=== PATIENT | female | born 1985 | race Caucasian/White ===

== ENCOUNTER → 2017-01-23 | Outpatient (CLI) | payer OTHER ==
[~2017-01-23] MED LIST: PRENTAB26 PO
[2017-01-23 11:28] LABS: HEMATOCRIT 38.5 % (37-47)
[2017-01-23 12:12] LABS: GTGD 50 Grams
[2017-01-23 12:49] LABS: URINE APPEARANCE CLEAR (CLEAR); URINE BILIRUBIN NEG (NEG); URINE COLOR YELLOW; URINE EPITHELIAL CELL AUTO >30 /lpf (0-5); URINE NITRITE NEG (NEG); URINE SPECIFIC GRAVITY 1.019 (1.000-1.030); UROBILINOGEN NEG (NEG)
[2017-01-23 12:56] LABS: MANUAL MICROSCOPIC REQUIRED? NO; REVIEW REQ? NO
== END | disposition home or self-care (01) ==
LOC: C.LAB1850 09:33
PROVIDERS: ATTEND Obstetrics & Gynecology
DX: Z34.93 Encounter for supervision of normal pregnancy, unspecified, third trimester (principal)

== ENCOUNTER → 2017-02-06 | Outpatient (CLI) | payer OTHER | END | disposition home or self-care (01) | LOC: C.LAB1850 08:30 | PROVIDERS: ATTEND Obstetrics & Gynecology | DX: Z34.92 Encounter for supervision of normal pregnancy, unspecified, second trimester (principal) ==

== ENCOUNTER → 2017-03-20 | Outpatient (CLI) | payer OTHER | END | disposition home or self-care (01) | LOC: C.LABSPEC 17:25 | PROVIDERS: ATTEND Obstetrics & Gynecology | DX: Z34.93 Encounter for supervision of normal pregnancy, unspecified, third trimester (principal) ==

== ENCOUNTER 2017-04-09 19:29 | Outpatient (CLI) | payer OTHER ==
[~2017-04-09] VITALS: Ht 172.7 cm; Wt 96.4 kg
[2017-04-09 20:55] LABS: MEAN CELL VOLUME 91.8 fL (80-100); MEAN CORPUSCULAR HEMOGLOBIN 31.4 pg (25-34); MEAN CORPUSCULAR HGB CONC 34.2 g/dl (32-36); MEAN PLATELET VOLUME 9.7 fL (7.4-10.4); PLATELET COUNT 259 K/uL (130-400); RED BLOOD COUNT 4.14 M/uL (4.2-5.4)
[2017-04-09 21:20] VITALS: Ht 172.7 cm; Wt 96.4 kg
[2017-04-09] MEDS ORDERED: PRENTAB26 PO (21:20)
[2017-04-09 21:25] LABS: ALKALINE PHOSPHATASE 170 U/L (45-117); ALT/SGPT 17 U/L (12-78); AST/SGOT 10 U/L (15-37)
== END 2017-04-09 22:45 | disposition home or self-care (01) ==
LOC: C.OPB 19:29 → C.LD 19:29 → C.OPB 22:45
PROVIDERS: ATTEND Obstetrics & Gynecology
DX: O16.3 Unspecified maternal hypertension, third trimester (principal); Z3A.39 39 weeks gestation of pregnancy

== ENCOUNTER 2017-04-10 07:27 | Inpatient (IN) | payer OTHER ==
[~2017-04-10] VITALS: Ht 172.7 cm; Wt 96.5 kg
[2017-04-10] MEDS ORDERED: LACTATED RINGER'S 1000ML 1,000 ML IV PRN (08:34)
[2017-04-10] MEDS ORDERED: LACTATED RINGER'S 1000ML 500 ML IV PRN ×2 (08:35→11:40)
[2017-04-10] MEDS ORDERED: OXYTOCIN 30 UNITS/500ML NSS IV PRN (08:45)
[2017-04-10 09:01] VITALS: Ht 172.7 cm; Wt 96.5 kg
[2017-04-10 09:09] LABS: MEAN CELL VOLUME 91.7 fL (80-100); MEAN CORPUSCULAR HEMOGLOBIN 30.7 pg (25-34); MEAN CORPUSCULAR HGB CONC 33.5 g/dl (32-36); MEAN PLATELET VOLUME 10.2 fL (7.4-10.4); PLATELET COUNT 266 K/uL (130-400); RED BLOOD COUNT 4.36 M/uL (4.2-5.4)
[2017-04-10] MEDS: LACTATED RINGER'S 1000ML 1,000 ML IV SCH ×3 (09:16→16:32)
[2017-04-10 09:18] LABS: INR 0.9 (0.9-1.1); PROTHROMBIN TIME (PATIENT) 9.4 SECONDS (9.0-12.0)
[2017-04-10] MEDS ORDERED: BUPIVACAINE 0.25% 30 ML VIAL ONE (10:44)
[2017-04-10] MEDS ORDERED: FENTANYL CITRATE INJ 50 MCG/1 ML 2 ML VIAL ONE (10:45)
[2017-04-10] MEDS ORDERED: EpHEDrine SULFATE INJ 50 MG/ML AMP ONE (10:45)
[2017-04-10] MEDS ORDERED: FENTANYL 2MCG/ML ROPIV 1.25MG/ML 100ML BAG EPI ONE (10:46)
[2017-04-10] MEDS ORDERED: DiphenhydrAMINE HCL 50 MG/ML VIAL IV PRN (11:45)
[2017-04-10] MEDS ORDERED: ONDANSETRON INJ 2 MG/ML 2 ML VIAL IV PRN (11:45)
[2017-04-10] MEDS ORDERED: NALBUPHINE HCL INJ 10 MG/ML AMP IV PRN (11:45)
[2017-04-10] MEDS ORDERED: NALOXONE HCL INJ 0.4 MG/1 ML VIAL/CARP IV PRN (11:45)
[2017-04-10] MEDS ORDERED: EpHEDrine SULFATE INJ 50 MG/ML AMP IV PRN (11:45)
--- NOTE | 2017-04-10 17:13 | Medical Student: [facility] ---
Med Student History & Physical Date of Service April 10, 2017. Chief Complaint Induction for gestational htn History of Present Illness Source: patient Pt is a 32F with , STELLA of 04/13, 39-4 weeks of GA, presents for induction. course has been complicated by gestational htn Induced via pictocin. Intially no loss of fluid or uterine bleeding, +FM At 9AM Dr. Jorge performed AROM, fluid clear. Epidural begun. 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 History Menarche: 15 LMP: 07/07 hx of abnormal pap smear --> LEEP (2008) Past Medical History hx of depression, migraines Past Surgical History wisdom teeth Social History Smoking Status: Current Every Day Smoker (5 per day) Alcohol Use: none Drug Use: none Marital Status: Housing status: lives with family Allergies Coded Allergies: No Known Allergies (Unverified , 04/10/17) Home Medications Multivit/Min/Iron/Fol Ac/Pren ( Vitamin), 1 TAB PO DAILY Review of Systems Constitutional: No chills, No fever, No sweats Eyes: No eye pain, No worsening of vision Respiratory: No cough, No shortness of breath, No wheezing Cardiovascular: No chest pain, No palpitations Abdomen: No nausea, No pain, No vomiting Musculoskeletal: No calf pain Genitourinary - Female: No dysuria Physical Exam Vital Signs: BP: 116/74 HR: 70 General Appearance: WD/WN, no apparent distress Head: normocephalic, atraumatic Respiratory/Chest: chest non-tender, lungs clear, normal breath sounds Cardiovascular: regular rate, rhythm, no gallop, no murmur Abdomen / GI: non tender, soft Extremities: no calf tenderness, + pedal edema (+1) Skin: normal color, warm/dry Monitoring External Monitor: FHR: 140, variability moderate, accels present, early decels present, category 1. Tocodynamometer: Contractions every 2-4 min Laboratory Results 04/10/17 08:57 Test 04/10/17 08:57 Red Blood Count 4.36 M/uL (4.2-5.4) Mean Corpuscular Volume 91.7 fL (80-100) Mean Corpuscular Hemoglobin 30.7 pg (25-34) Mean Corpuscular Hemoglobin Concent 33.5 g/dl (32-36) RDW Standard Deviation 48.2 fL (36.4-46.3) RDW Coefficient of Variation 14.3 % (11.5-14.5) Mean Platelet Volume 10.2 fL (7.4-10.4) Prothrombin Time 9.4 SECONDS (9.0-12.0) Prothromb Time International Ratio 0.9 (0.9-1.1) Activated Partial Thromboplast Time 25.0 SECONDS (21.0-31.0) Partial Thromboplastin Ratio 1.0 Assessment and Plan Pt is a 32F, at 39-4 weeks gestation complicated by preeclampsia. Want to continue with induction and increase pictocin dose as needed.
[2017-04-10] MEDS ORDERED: ACETAMINOPHEN 325 MG TAB PO PRN (17:45)
[2017-04-10] MEDS: FENTANYL 2MCG/ML ROPIV 1.25MG/ML 100ML BAG EPI PRN ×2 (19:03→19:55)
[2017-04-11] MEDS: FENTANYL 2MCG/ML ROPIV 1.25MG/ML 100ML BAG EPI PRN (01:20)
[2017-04-11] MEDS ORDERED: MISOPROSTOL 200 MCG TAB ONE (03:17)
[2017-04-11] MEDS ORDERED: SUPERCREAM 0.870 % 15GM JAR EXT PRN (03:45)
[2017-04-11] MEDS ORDERED: ACETAMINOPHEN 325 MG TAB PO PRN (03:45)
[2017-04-11] MEDS ORDERED: BENZOCAINE 20% AER SPR 82.5 GM CAN EXT PRN (03:45)
[2017-04-11] MEDS ORDERED: OXYTOCIN 30 UNITS/500ML NSS IV PRN (03:45)
[2017-04-11] MEDS ORDERED: HYDROCORTISONE ACETATE 25 MG SUPP PR PRN (03:45)
[2017-04-11] MEDS ORDERED: ACETAMINOPHEN/CODEINE 300/30MG TAB PO PRN ×2 (03:45)
[2017-04-11] MEDS ORDERED: LANOLIN OINT EXT PRN ×2 (03:45)
[2017-04-11] MEDS ORDERED: DIPHTHERIA/TETANUS/PERTUSSIS 0.5 ML SYR/VIAL IM. ONE (03:45)
--- NOTE | 2017-04-11 07:39 | Anesthesia Procedure Note ---
Anesthesia Epidural Removal Nt Date & Time April 11, 2017 at 07:40 Vital Signs Pain Intensity: 0.0 Notes Mental Status: alert / awake / arousable, participated in evaluation Nausea / Vomiting: adequately controlled Pain: adequately controlled Airway Patency, RR, SpO2: stable & adequate BP & HR: stable & adequate Hydration State: stable & adequate Neuraxial Anesthesia: was administered Anesthetic Complications: no major complications apparent, pt satisfied with anesthetic care Epidural: removed without complications, with tip intact
[2017-04-11] MEDS: IBUPROFEN 600 MG TAB PO PRN ×3 (07:46→20:00)
[2017-04-11] MEDS: FERROUS SULFATE 325 MG TAB PO SCH (07:46)
[2017-04-11] MEDS: DOCUSATE SODIUM 100 MG CAP PO SCH ×2 (07:46→20:00)
[2017-04-11] MEDS: PRENATAL VITAMIN TAB PO SCH (07:46)
--- NOTE | 2017-04-11 10:57 | DELIVERY SUMMARY ---
DATE OF OPERATION: 04/11/2017 FINDINGS: Viable female with Apgars of 8 and 9. Baby delivered spontaneously over midline episiotomy. Cord gases, cord blood samples obtained. Cord blood donation kit obtained. Placenta delivered spontaneously. Episiotomy repair was performed with 2-0 Vicryl in a routine fashion. Estimated blood loss 300 mL. LABOR NOTE: The patient is a 32-year-old 2, para 0 with an EDC of 13 April at 39+ weeks of gestational age, she was admitted for term induction and for gestational hypertension. The patient had elevated blood pressure since 37 weeks with a diagnosis of gestational hypertension at term, the patient is admitted for induction. The patient's blood type is A positive, antibody negative, rubella immune, hepatitis B negative. She had normal panorama. She had negative maternal serum AFP. She had an elevated 1-hour Glucola at 28 weeks with normal 2-hour glucose tolerance test and she had negative 3rd trimester beta strep culture. Upon admission, the patient's blood pressure was 140/90. Abdomen was gravid, vertex, positive heart tones, estimated weight of 8 pounds. Cervix was 3 cm dilated, 50% efface, and -2 station. The tracing was category 2. PIH labs were stable and the patient was started on Pitocin per induction protocol. Approximately 2 hours after starting Pitocin, the patient had artificial rupture of membranes for clear fluid. Contractions increased in intensity up to the rupture of membranes. Epidural was placed. An intrauterine pressure catheter was placed to better monitor the contractions. The patient remained in a latent phase of labor for approximately 6 hours. Contractions were adequate with the Pitocin. Approximately 8 hours after rupture of membranes, she was 5 cm dilated, 100% effaced and 0 station. Over the next 6 hours, the patient progressed to full dilatation. Tracing remained category 2, then she began her second stage. She pushed for approximately an hour delivering the viable female infant. The cord was clamped and cut. Cord gases, cord blood samples were obtained. Cord blood donation kit was collected. Placenta was delivered spontaneously. Midline episiotomy was repaired with 4-0 and 2-0 Vicryl in routine fashion. Her estimated blood loss was 300 mL. I attest to the content of the Intraoperative Record and any orders documented therein. Any exceptio ns are noted below.
[2017-04-11 11:20] VITALS: BP 126/84; PULSE 92; TEMP 36.7
[2017-04-11 11:26] VITALS: BP 133/80; PULSE 92; TEMP 36.5; O2SAT 98
[2017-04-11 15:57] VITALS: BP_SYST 124; BP_SYST 152; BP_DIAS 90; BP_DIAS 91; PULSE 110; TEMP 36.6
[2017-04-11 20:00] VITALS: BP 149/93; PULSE 117; TEMP 36.8
[2017-04-12 00:25] VITALS: BP 128/85; PULSE 89; TEMP 36.5
[2017-04-12] MEDS: IBUPROFEN 600 MG TAB PO PRN ×3 (00:32→16:32)
[2017-04-12 07:10] VITALS: BP 124/79; PULSE 85; TEMP 36.6; O2SAT 98
[2017-04-12 07:28] LABS: HEMATOCRIT 30.7 % (37-47)
[2017-04-12] MEDS: FERROUS SULFATE 325 MG TAB PO SCH (08:00)
[2017-04-12] MEDS: DOCUSATE SODIUM 100 MG CAP PO SCH (08:00)
[2017-04-12] MEDS: PRENATAL VITAMIN TAB PO SCH (08:00)
--- NOTE | 2017-04-12 08:37 | Progress Note ---
Subjective April 12, 2017. Subjective conversation w/ patient, physical exam Ambulation: ambulating normally Voiding: no voiding problems Passing Gas: Yes Diet Tolerance: Regular Diet [place]ochia: Moderate Feeding Type: Breast Feeding Review of Systems Constitutional: No problem reported Respiratory: No problem reported Cardiac: No problem reported Breast: No problem reported Abdomen: No problem reported Female : No problem reported Objective Vital Signs Date Time Temp Pulse Resp B/P Pulse Ox O2 Delivery O2 Flow Rate FiO2 04/12/17 07:10 36.6 85 18 124/79 98 Room Air 04/12/17 00:25 36.5 89 18 128/85 Room Air 04/12/17 00:25 Room Air 04/11/17 20:00 36.8 117 20 149/93 04/11/17 17:00 Room Air 04/11/17 15:57 36.6 110 18 124/90 Room Air 152/91 04/11/17 11:26 36.5 92 18 133/80 98 Room Air 04/11/17 11:20 Room Air 04/11/17 11:20 36.7 92 20 126/84 Room Air Physical Exam General Appearance: WELL-APPEARING, NO APPARENT DISTRESS Respiratory/Chest: no respiratory distress Cardiovascular: regular rate, rhythm Abdomen: normal bowel sounds Fundus: Firm Extremities: normal inspection Laboratory Results Last 24 Hours Test 04/12/17 06:24 Hemoglobin 10.2 g/dL Hematocrit 30.7 % Assessment and Plan Post- Day#: 1 Continue Routine Care: PPD#1 doing well. Continue routine care.
--- NOTE | 2017-04-12 08:57 | Discharge Instructions ---
Discharge Instructions Date of Service April 12, 2017. Admission Reason for Admission: Induction Discharge Discharge Diagnosis / Problem: Vaginal delivery Discharge Goals Goal(s): Specific Goal(s) Activity Recommendations Activity Limitations: per Instructions/Follow-up section . Instructions / Follow-Up Instructions / Follow-Up ACTIVITY RECOMMENDATIONS: * Gradual return to full activity over the next 2-3 weeks. * No lifting - nothing heavier than baby over the next 2-3 weeks. * Do not engage in vigorous exercise, sexual activity or sports until cleared by your physician. * Do not drive or operate any motorized equipment until cleared by your physician. * You may shower/bathe daily. MEDICATIONS: For discomfort or pain, you may use Acetaminophen (Tylenol), Ibuprofen (Advil), or Naproxen (Aleve) following the package directions. For constipation you may use Colace following the package directions. BREAST CARE: If you are not breast feeding: * Wear a supportive bra 24 hours a day for one to two weeks. * Avoid stimulating your breasts and nipples as much as possible during the first few weeks after delivery. * When taking a shower, have the warm water hit your back, not breasts. * When your breasts feel full, apply ice packs. Usually three to four times a day helps ease the discomfort. * Take a mild pain medication (Tylenol / Motrin) when you are uncomfortable. If breast feeding: * Use breast milk to lubricate nipples. Lansinoh cream may be used for sore nipples. You do not need to remove cream prior to breast feeding. If using a different brand of cream, check the label for directions regarding removal of cream prior to nursing. * Wear a supportive bra. * If having problems with breasts or breast feeding, call a big machine consultant or your health care provider. EPISIOTOMY CARE: After delivery, if you have an episiotomy (stitches), the following steps will ease discomfort and aid healing. * For the first 24 hours after delivery, place ice packs next to your episiotomy to help reduce swelling. * After the first 24 hour-period, sitz baths, either portable or in the tub, are suggested. A shower with a shower arm sprayed over the episiotomy may be comforting. * Clary care should be done after each voiding and bowel movement. Squirt warm water from a plastic bottle over the perineum (region of the body between the anus and urinary opening) and pat dry. * Use Dermoplast to ease discomfort. Shake container. [place] directly over the episiotomy. Place a Tucks on a clean sanitary pad next to your episiotomy. SPECIAL CARE INSTRUCTIONS: When you are discharged from the hospital, it is important for you to follow the instructions listed below: * During the first week at home, you should be able to care for yourself and your baby. In addition, the usual light household activities are encouraged. * Limit your activities to the way you feel. Do not try to clean the house or move furniture. Be sensible. * If you actively engage in sports and have done so up until the time of your delivery, you may resume these activities as soon as you feel able. This may take up to one month or even longer. Use good judgment. * Continue to take your vitamins for at least six weeks after the of your baby. * Your diet need not be limited unless you were on a special diet before your delivery. Breast-feeding mothers need around 2500 calories per day and at least 64-80 ounces of fluid per day (8 to 10 glasses). * You should eat foods from the four major food groups. Crash diets or fad diets are to be avoided. Eating lean meats, fresh fruits and vegetables, low-fat dairy products, high fiber foods and a regular exercise program, will help you get back to your pre- weight without putting your health at risk. * Constipation is sometimes a problem after delivery. Take a mild laxative as needed. If breast feeding, Milk of Magnesia is acceptable to use. You may use a suppository or Fleets enema if no episiotomy. * A daily shower or tub bath is suggested. Be sure to thoroughly and gently dry the perineum. * A bloody vaginal discharge will usually continue until around four weeks post . A small amount of bleeding may continue for as long as six weeks. Vaginal discharge changes from the bright red bleeding after delivery to pink then brownish and finally yellowish-pink before becoming white and disappearing. * Bleeding may increase with activity. Your first period may come in 4-8 weeks. If you are breast feeding, your period may be delayed even longer. * [place] (sex) can begin whenever both you and your partner feel comfortable and do not have any form of genital infection. It is recommended that you wait at least six weeks for internal and external healing to occur. If you have questions, please talk to your health care practitioner. A condom should be used to prevent infection and . * Foreplay, gentle intercourse and lubrication is very important the first several times to prevent pain. A water-based lubricant such as K-Y jelly or Astroglide may be used. * If you have RH negative blood and your baby is RH positive, you will receive RHOGAM by injection prior to discharge. The nurse will give you a card to keep with you that has the date and place that you received RHOGAM after delivery. * During your care, you had a Rubella screen done to check for the presence of rubella antibodies in your blood. If your test was negative, you will receive a Rubella vaccine prior to discharge. This vaccine may cause a fever, soreness at the injection site and flu-like symptoms. If these symptoms persist, notify your health care practitioner. is not advised for one month after a Rubella vaccine. * Verbalizes understanding of car seat law as reviewed with patient nursing. * Car Seat hand-out given and reviewed with patient by nursing. * Shaken baby information reviewed with patient by nursing. Call you doctor if: * Heavy bleeding (saturating several pads an hour) or passing clots the size of your fist. * A fever >101 degrees F (38.3 degrees C) on two occasions four hours apart and /or chills. * Unusual pain in the pelvic or vaginal areas. * "Baby Blues" lasting longer than two weeks. If you have any questions or concerns, call your health care practitioner at . FOLLOW UP VISIT: * Please call the office at to schedule a 6 week examination. It is important you keep this appointment. It is important for you to make arrangements for either yearly or twice yearly check-ups thereafter. Current Hospital Diet Patient's current hospital diet: Regular OB Diet Discharge Diet Recommended Diet: Regular Diet Pending Studies Studies pending at discharge: no Medical Emergencies . Who to Call and When: Medical Emergencies: If at any time you feel your situation is an emergency, please call 911 immediately. . Non-Emergent Contact Non-Emergency issues call your: Primary Care Provider . . "Provider Documentation" section prepared by Maureen [email or web address]. . VTE Core Measure Inpt VTE Proph given/why not?: Treatment not indicated
[2017-04-12 16:30] VITALS: BP 129/88; PULSE 100; TEMP 37
[2017-04-12 20:00] VITALS: BP_DIAS 88; PULSE 100; TEMP 37
[2017-04-12] MEDS ORDERED: BISACODYL 5 MG TABEC PO SCH (20:00)
== END 2017-04-12 19:20 | disposition home or self-care (01) | DRG 775 ==
LOC: C.LD 07:27 → C.OBG 04-11 11:20
PROVIDERS: ADMIT Obstetrics & Gynecology; ATTEND Obstetrics & Gynecology
PROC: 10E0XZZ Delivery of Products of Conception, External Approach (ICD-10-PCS; principal; 2017-04-11)
PROC: 3E033VJ Introduction of Other Hormone into Peripheral Vein, Percutaneous Approach (ICD-10-PCS; principal; 2017-04-11)
PROC: 10H07YZ Insertion of Other Device into Products of Conception, Via Natural or Artificial Opening (ICD-10-PCS; principal; 2017-04-11)
PROC: 10907ZC Drainage of Amniotic Fluid, Therapeutic from Products of Conception, Via Natural or Artificial Opening (ICD-10-PCS; principal; 2017-04-11)
PROC: 0W8NXZZ Division of Female Perineum, External Approach (ICD-10-PCS; principal; 2017-04-11)
DX: O13.4 Gestational [pregnancy-induced] hypertension without significant proteinuria, complicating childbirth (principal); Z37.0 Single live birth; O76 Abnormality in fetal heart rate and rhythm complicating labor and delivery; O99.334 Smoking (tobacco) complicating childbirth; F17.210 Nicotine dependence, cigarettes, uncomplicated; Z3A.39 39 weeks gestation of pregnancy